=== PATIENT | female | born 2000 | race Two or more races ===

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

== ENCOUNTER → 2024-11-04 | Emergency (ER) | payer MEDICAID ==
[~2024-11-04] VITALS: Ht 157.5 cm; Wt 60.9 kg
[~2024-11-04] MED LIST: CYCL-394 PO
[2024-11-04 09:19] VITALS: TEMP 96.4
--- NOTE | 2024-11-04 10:18 | Physician Documentation ---
History of Present Illness General Chief Complaint: Abdominal Pain Stated Complaint: ABD/BACK PAIN Time Seen by MD: 10:14 Mode of Arrival: POV History of Present Illness Initial Comments The patient is a 24-year-old female with a history of low back pain who presents with a 2 hour history of right flank pain. She reports that she is not able to find a comfortable position. She denies any urinary symptoms. Last menstrual period ended a few days ago. Medication Reconciliation Allergies: Coded Allergies: No Known Allergies (Unverified , 11/04/24) Review of Systems ROS Constitutional: Denies chills, fatigue, fever, weight gain or weight loss. HEENT: Denies hearing loss, sinus pressure or visual changes. Respiratory: Denies cough, shortness of breath or wheezing. Cardiovascular: Denies chest pain, pain while walking (claudication), edema or palpitations. Gastrointestinal: Right flank pain, no nausea or vomiting Genitourinary: Denies painful urination (dysuria), excessive amount of urine (polyuria) or urinary frequency. Metabolic/Endocrine: Denies cold intolerance, heat intolerance, excessive thirst (polydipsia) or excessive hunger (polyphagia). Neurological: Denies dizziness, extremity numbness, extremity weakness, headaches, seizures or tremors. Psychiatric: Denies anxiety or depression. Integumentary: Denies breast discharge, breast lump, hives, mole change(s), rash or skin lesion. Musculoskeletal: Denies back pain, joint pain, joint swelling or neck pain. Hematologic: Denies easily bleeding, easily bruises, lymphedema or issues with blood clots. Immunologic: Denies food allergies or seasonal allergies. Physical Exam Physical Exam Vital Signs: Temperature: 96.4, Source: Temporal, Heart Rate: 91, Respiratory Rate: 16, BP: 134/90, Pulse Oximetry: 98, Weight: 60.850 Physical Exam Physical Exam Vitals and nursing note reviewed. Constitutional: General: Patient is awake, alert, oriented x 4 in no acute distress and well appearing. Speech is clear and lucid. Appearance: Normal appearance. Patient is not ill-appearing, toxic-appearing or diaphoretic. HENT: Head: Normocephalic and atraumatic. Mouth/Throat: Mouth: Mucous membranes are moist. Pharynx: Oropharynx is clear. Eyes: General: No scleral icterus. Extraocular Movements: Extraocular movements intact. Pupils: Pupils are equal, round, and reactive to light. Neck: Supple, no Kernig or Brudzinski sign. Cardiovascular: Rate and Rhythm: Normal rate and regular rhythm. Heart sounds: No murmur heard. Pulmonary: Effort: No respiratory distress. Breath sounds: No wheezing, rhonchi or rales. Abdominal: General: There is no distension. Palpations: There is no fluid wave, hepatomegaly or mass. Tenderness: There is no abdominal tenderness. There is no guarding. Musculoskeletal: General: No swelling or deformity. Skin: Coloration: Skin is not jaundiced. Findings: No erythema or rash. Neurological: Mental Status: Patient is alert. Progress Results/Orders Results/Orders Orders - MAMIE DAUGHERTY MD Ultrasound Pelvis W/Orwo Dplx (11/04/24 ) Completed Orders - MAMIE DAUGHERTY MD CMP (11/04/24 10:14) Cbc/Diff (11/04/24 10:14) Hcg Serum Qt (11/04/24 10:14) MG (11/04/24 10:14) Lipase (11/04/24 10:14) Normal Saline 1000ml (0.9% Sodium Chlori (11/04/24 10:20) Ondansetron Inj. (Zofran 4mg/2ml Vial) (11/04/24 10:20) Hydromorphone 0.5 Mg/0.5 Ml/Pf (Dilaudid (11/04/24 10:20) Ua W/Microscopic, Cult If Ind (11/04/24 10:30) Ultrasound Pelvis W/Orwo Dplx (11/04/24 ) Ketorolac Trometh 30mg/Ml Vial (Toradol (11/04/24 14:00) Medications Received in ER Medications (Trade) Dose Ordered Sig/Roseanne Route PRN Reason Start Time Stop Time Status Last Admin Dose Admin Sodium Chloride 1,000 ml @ 1,000 mls/hr ONCE ONCE IV 11/04/24 10:20 11/04/24 11:19 DC 11/04/24 10:42 1,000 MLS/HR (Zofran 4mg/2ml vial) 4 mg ONCE ONCE IV 11/04/24 10:20 11/04/24 10:21 DC 11/04/24 10:42 4 MG (Dilaudid inj.) 0.5 mg ONCE ONCE IV 11/04/24 10:20 11/04/24 10:21 DC 11/04/24 10:42 0.5 MG (Toradol inj. 30mg/ml) 30 mg ONCE ONCE IV 11/04/24 14:00 11/04/24 14:01 DC 11/04/24 14:48 30 MG Vital Signs 11/04/24 11/04/24 11/04/24 09:19 09:39 10:42 Temp 96.4 Pulse 91 Resp 18 16 18 B/P (MAP) 134/90 Pulse Ox 98 Laboratory Tests Test 11/04/24 10:30 11/04/24 10:40 Urine Specimen Description Cln catch midstream Urine Color Yellow Urine Clarity Clear Urine pH 6.0 Urine Specific Addison >=1.030 Urine Protein Negative Urine Glucose (UA) Negative Urine Ketones Negative Urine Occult Blood Trace-intact Urine Nitrite Negative Urine Bilirubin Negative Urine Urobilinogen 0.2 Urine Leukocyte Esterase Negative Urine RBC 3-10 Urine WBC 0-4 Urine Squamous Epithelial Cells Many Urine Bacteria 2+ Urine Mucus Moderate Urine Culture Indicated Not ind Volume Urine Centrifuged 10 ml Urine Comment White Blood Count 10.3 Red Blood Count 4.99 Hemoglobin 13.8 Hematocrit 40.9 Mean Corpuscular Volume 81.9 Mean Corpuscular Hemoglobin 27.6 Mean Corpuscular Hemoglobin Concent 33.7 Red Cell Distribution Width 14.0 Platelet Count 455 H Mean Platelet Volume 8.5 Neutrophils (%) (Auto) 74.2 Lymphocytes (%) (Auto) 19.7 L Monocytes (%) (Auto) 4.5 Eosinophils (%) (Auto) 0.9 Basophils (%) (Auto) 0.7 Neutrophils # (Auto) 7.6 Lymphocytes # (Auto) 2.0 Monocytes # (Auto) 0.5 Eosinophils # (Auto) 0.1 Basophils # (Auto) 0.1 CBC Comment Sodium Level 139 Potassium Level 3.5 Chloride Level 102 Carbon Dioxide Level 26.5 Anion Gap 11 Blood Urea Nitrogen 7 Creatinine 0.72 Estimated GFR/1.73 m2 > 90 BUN/Creatinine Ratio 9.7 L Glucose Level 88 Calcium Level 9.3 Magnesium Level 2.2 Total Bilirubin 0.2 Aspartate Amino Transf (AST/SGOT) 20 Alanine Aminotransferase (ALT/SGPT) 41 Alkaline Phosphatase 160 H Total Protein 8.1 Albumin 4.4 Globulin 3.7 Albumin/Globulin Ratio 1.2 Lipase 22 HCG Beta Subunit < 1.0 Chemistry Comments Medical Decision Making Findings This 24-year-old female presented with right-sided back and side pain and has had a thorough workup including laboratory studies and pelvic ultrasound which were all negative. She does have chronic low back pain. I am going to prescribe a few Flexeril tablets. Departure Disposition: HOME / SELF CARE / HOMELESS Impression: Primary Impression: Back pain Condition: Stable Additional Instructions: It is important to see your doctor or primary care provider. Emergency care may be incomplete without proper follow-up. Symptoms sometimes change or new symptoms might arise after you leave the emergency department. It is important that you call your doctor if you become worse in any way, or return to the emergency department. You are strongly urged to follow-up with your physician to assure complete and thorough care. Please call your doctor's office today, and informed them that you were seen in the emergency department, and that you need to be seen immediately for close follow-up. If you do not have a primary care doctor we encourage you to proactively seek a local physician for close follow-up. Consider local clinics, [facility], or local [facility]. Prior to discharge we spoke at length concerning symptoms that would merit reevaluation, but please return to the emergency department for any symptoms that are concerning to you, and we will be happy to continue your evaluation and treatment. Please note you can always return to the emergency department if you are having difficulty coordinating close follow-up. If medications were prescribed, you should fill them at your local pharmacy immediately and take only as prescribed. Bring your new medications to your [facility] follow-up visit to discuss any changes that would be necessary. Please check [employer] for any results you did not receive in the Emergency Department: often we are unable to get all your tests back before you leave, and these tests need to be reviewed by your PCP and yourself. You can also call Medical Records if you are unable to access the internet to see [facility]. Return to the emergency department immediately for worsening chest pain, difficulty breathing, sweating, or other concerning emergent symptoms. Referrals: NO PRIMARY CARE PROVIDER (PCP) Prescriptions Cyclobenzaprine HCl (Cyclobenzaprine HCl) 10 Mg Tablet 1 TAB PO Q8H for muscle spasms for 10 Days, #15 TAB Prov: MAMIE DAUGHERTY MD 11/04/24 Signature Scribe Signature: . Attestation: . MAMIE DAUGHERTY MD Nov 04, 2024 10:18
[2024-11-04] MEDS: normal saline 1000ml 1,000 ML IV ONE (10:42)
[2024-11-04] MEDS: ondansetron/PF 4mg/2ml inj IV ONE (10:42)
[2024-11-04] MEDS: HYDROmorphone inj. 0.5 MG/0.5 ML DISP.SYRIN IV ONE (10:42)
[2024-11-04 11:01] LABS: MEAN PLATELET VOLUME 8.5 FL (7.4-10.4); RED CELL DISTRIBUTION WIDTH 14.0 % (11.5-14.5)
[2024-11-04 11:14] LABS: LEUKOCYTE ESTERASE ,URINE NEGATIVE (Neg); NITRITES, URINE NEGATIVE (Neg); OCCULT BLOOD,URINE TRACE-INTACT (Neg)
[2024-11-04 11:19] LABS: CREATININE 0.72 MG/DL (0.40-0.90); TOTAL CARBON DIOXIDE 26.5 MMOL/L (24-32); eCRCL 97 ML/MIN; eGFR > 90 ML/MIN
[2024-11-04 11:19] LABS: UA COLLECTION TYPE CLN CATCH MIDSTREAM
[2024-11-04 11:21] LABS: MUCUS STRANDS MODERATE /LPF (Neg); SQUAMOUS EPITHELIAL CELL,UR MANY /LPF (FEW)
[2024-11-04] MEDS: ketorolac trometh 30MG/ML vial 30 MG/ML VIAL IV ONE (14:48)
--- NOTE | 2024-11-04 15:07 | RADIOLOGY REPORT ---
EXAM: US ULTRASOUND PELVIS W/ORWO DPLX HISTORY: Right sided pelvic pain COMPARISON: None TECHNIQUE: Transabdominal and transvaginal imaging was utilized. Grayscale and color doppler evaluati on. Images were stored in the patient's permanent medical record. FINDINGS: UTERUS: 6.9 x 3 x 3.5 cm. Endometrial stripe: 0.4 cm. RIGHT OVARY: 2.7 x 2.1 x 2.3 cm.Normal vascularity. No suspicious masses or cysts. LEFT OVARY: 3.3 x 2 x 1.4 cm. Normal vascularity. No suspicious masses or cysts. OTHER: No free fluid is identified. IMPRESSION: 1. Unremarkable pelvic ultrasound.
[2024-11-04 16:09] VITALS: BP 107/75; PULSE 81; RESP 16; O2SAT 98
== END | disposition home or self-care (01) ==
LOC: ER 09:11
DX: M54.9 Dorsalgia, unspecified (principal); R10.2 Pelvic and perineal pain
CPT/HCPCS: 36415; 76830; 76856; 80053; 81001; 83690; 83735; 84702; 85025; 93976; 96361; 96374; 96375; 99285; J1171; J1885; J2405; J7030